=== PATIENT | male | born 1995 | race Caucasian/White ===

== ENCOUNTER 2017-03-17 01:21 | Emergency (ER) | payer OTHER ==
[~2017-03-17] VITALS: Ht 167.6 cm; Wt 61.9 kg
[2017-03-17 01:27] VITALS: TEMP 36.7; Ht 167.6 cm; Wt 61.9 kg
[2017-03-17] MEDS ORDERED: SODIUM CHLORIDE 0.9% 1000ML 1,000 ML IV STA (01:42)
--- NOTE | 2017-03-17 01:50 | EMERGENCY ROOM VISIT NOTE ---
History Report prepared by Emilyiblayla: Aury Ortega Under the Supervision of: Declan BermudezO. First contact with patient: 01:28 Chief Complaint: IRREGULAR HEARTBEAT Stated Complaint: IRREGULAR HEART RATE History of Present Illness The patient is a 21 year old male who presents to the Emergency Room with complaints of constant heart palpitations begging a couple hours ago. The patient was at a concert a couple hours ago. The patient states he felt fine before and and during the concert. He reports he smoked "weed" after the concert. After smoking the marijuana he started to feel shaky, chilled, and have the heart palpitations. He states he smoked the same marijuana earlier in the day and had no problems. He states he smoked more "weed" after the concert than he did earlier in the day. He denies any alcohol use or other recreational drug use. The patient reports some nausea. The patient states he had a cold last week which he thought resolved. He denies any recent trauma or injury. The patient states he thought he might of been having a panic attack because he never has had symptoms like this before. Pt denies headache, change in vision, fevers, chest pain, shortness of breath, nausea, vomiting, diarrhea, pain with urination, and melena. Source of History: patient Onset: a couple hours ago Position: other (heart) Quality: other (palpitiations) Timing: constant Associated Symptoms: + chills, No headache, No chest pain, No SOB, No nausea , No vomiting, No abdominal pain, No diarrhea Review of Systems See HPI for pertinent positives & negatives. A total of 10 systems reviewed and were otherwise negative. Past Medical & Surgical Medical Problems: (1) No Known Active Medical Problems Family History Patient reports no known family medical history. Social History Smoking Status: Never Smoker Alcohol Use: none Drug Use: marijuana Marital Status: single Occupation Status: student Current/Historical Medications No Active Prescriptions or Reported Meds Allergies Coded Allergies: No Known Allergies (Unverified , 03/17/17) Physical Exam Vital Signs Date Time Temp Pulse Resp B/P (MAP) Pulse Ox O2 Delivery O2 Flow Rate FiO2 03/17/17 03:36 93 16 122/63 99 03/17/17 03:03 91 16 125/55 96 Room Air 03/17/17 01:35 144 03/17/17 01:27 36.7 131 16 169/98 99 Room Air Physical Exam GENERAL: alert, slightly anxious appearing, well nourished, no distress, non- toxic EYE EXAM: normal conjunctiva, PERRL and EOM's grossly intact OROPHARYNX: no exudate, no erythema, lips, buccal mucosa, and tongue normal and mucous membranes are dry NECK: supple, no nuchal rigidity, no adenopathy, non-tender LUNGS: Clear to auscultation. Normal chest wall mechanics HEART: Tachycardic and regular no murmurs, S1 normal and S2 normal ABDOMEN: abdomen soft, non-tender, normo-active bowel sounds, no masses, no rebound or guarding. BACK: Back is symmetrical on inspection and there is no deformity, no midline tenderness, no CVA tenderness. SKIN: no rashes and no bruising UPPER EXTREMITIES: upper extremities are grossly normal. LOWER EXTREMITIES: No pitting edema. NEURO EXAM: Normal sensorium, cranial nerves II-XII grossly intact, normal speech, no gross weakness of arms, no gross weakness of legs. Medical Decision & Procedures ER Provider Diagnostic Interpretation: Radiology results have been interpreted by me. Chest X-ray: no cardiomegaly no effusion, no wide mediastinum, no focal infiltrate, no pneumothorax. Laboratory Results 03/17/17 01:35 Red Blood Count 4.94, Mean Corpuscular Volume 89.3, Mean Corpuscular Hemoglobin 31.8, Mean Corpuscular Hemoglobin Concent 35.6, Mean Platelet Volume 12.9, Neutrophils (%) (Auto) 43.9, Lymphocytes (%) (Auto) 48.4, Monocytes (%) (Auto) 5.6, Eosinophils (%) (Auto) 1.6, Basophils (%) (Auto) 0.4, Neutrophils # (Auto) 4.41, Lymphocytes # (Auto) 4.86, Monocytes # (Auto) 0.56, Eosinophils # (Auto) 0.16, Basophils # (Auto) 0.04 03/17/17 01:35 Test 03/17/17 01:35 03/17/17 03:30 White Blood Count 10.04 K/uL (4.8-10.8) Red Blood Count 4.94 M/uL (4.7-6.1) Hemoglobin 15.7 g/dL (14.0-18.0) Hematocrit 44.1 % (42-52) Mean Corpuscular Volume 89.3 fL (80-100) Mean Corpuscular Hemoglobin 31.8 pg (25-34) Mean Corpuscular Hemoglobin Concent 35.6 g/dl (32-36) Platelet Count 177 K/uL (130-400) Mean Platelet Volume 12.9 fL (7.4-10.4) Neutrophils (%) (Auto) 43.9 % Lymphocytes (%) (Auto) 48.4 % Monocytes (%) (Auto) 5.6 % Eosinophils (%) (Auto) 1.6 % Basophils (%) (Auto) 0.4 % Neutrophils # (Auto) 4.41 K/uL (1.4-6.5) Lymphocytes # (Auto) 4.86 K/uL (1.2-3.4) Monocytes # (Auto) 0.56 K/uL (0.11-0.59) Eosinophils # (Auto) 0.16 K/uL (0-0.5) Basophils # (Auto) 0.04 K/uL (0-0.2) RDW Standard Deviation 41.1 fL (36.4-46.3) RDW Coefficient of Variation 12.8 % (11.5-14.5) Immature Granulocyte % (Auto) 0.1 % Immature Granulocyte # (Auto) 0.01 K/uL (0.00-0.02) Anion Gap 13.0 mmol/L (3-11) Est Creatinine Clear Calc Drug Dose 94.6 ml/min Estimated GFR () 112.2 Estimated GFR (Non- 96.8 BUN/Creatinine Ratio 13.8 (10-20) Calcium Level 9.2 mg/dl (8.5-10.1) Magnesium Level 1.9 mg/dl (1.8-2.4) Total Bilirubin 1.4 mg/dl (0.2-1) Aspartate Amino Transf (AST/SGOT) 21 U/L (15-37) Alanine Aminotransferase (ALT/SGPT) 33 U/L (12-78) Alkaline Phosphatase 31 U/L (45-117) Troponin I < 0.015 ng/ml (0-0.045) Total Protein 8.3 gm/dl (6.4-8.2) Albumin 4.5 gm/dl (3.4-5.0) Globulin 3.8 gm/dl (2.5-4.0) Albumin/Globulin Ratio 1.2 (0.9-2) Thyroid Stimulating Hormone (TSH) 1.970 uIu/ml (0.300-4.500) Urine Opiates Screen NEG (NEG) Urine Methadone, Qualitative NEG (NEG) Urine Barbiturates NEG (NEG) Urine Phencyclidine (PCP) Level NEG (NEG) Ur Amphetamine/Methamphetamine NEG (NEG) MDMA (Ecstasy) Screen NEG (NEG) Urine Benzodiazepines Screen NEG (NEG) Urine Cocaine Metabolite NEG (NEG) Urine Marijuana (THC) POS (NEG) Laboratory results per my review. Medications Administered Medications (Trade) Dose Ordered Sig/Godwin Route Start Time Stop Time Status Last Admin Dose Admin Sodium Chloride 1,000 ml @ 999 mls/hr Q1H1M STAT IV 03/17/17 01:42 03/17/17 02:42 DC 03/17/17 01:42 999 MLS/HR Potassium Chloride (Klor-Con M10) 40 meq NOW STAT PO 03/17/17 02:36 03/17/17 02:37 DC 03/17/17 03:16 40 MEQ ECG Indication: palpitations Rate (beats per minute): 136 Rhythm: sinus tachycardia Findings: no acute ischemic change, other (normal axis, normal intervals ) Comparison ECG Date: EKG interpreted by me ED Course 0134: The patient was evaluated in room B9. A complete history and physical exam was performed. 0142: Ordered Sodium Chloride 1000 ml @ 999 mls/hr IV. 0236: Ordered Potassium Chloride 40 meq PO. 0327: The patient is feeling better. 0332: Upon reevaluation, the patient is feeling better. I discussed the findings and the treatment plan with the patient. The patient verbalizes agreement and understanding. He was discharged home. Medical Decision Differential diagnosis: Etiologies such as premature contractions, electrolyte abnormality, cardiac dysrhythmia, thyroid dysfunction, pulmonary embolism, infection, gastrointestinal, as well as others were entertained. Patient improved here with IV fluids. I feel component of patient's palpitations and tachycardia was likely dehydration. I also discussed with him his use of marijuana today. No evidence of thyroid storm. Doubt ACS, PE, occult infectious etiology, tamponade, no evidence of infiltrate or effusion on chest x-ray, doubt dissection or occult GI bleed him a doubt perforation. Patient able to ambulate to the bathroom with a steady gait and tolerating by mouth at bedside, was well-appearing at time of discharge. Discussed with him avoidance of recreational drugs, adequate hydration, symptoms to watch and return for, he verbalized understanding was agreeable with plan. Medication Reconcilliation Current Medication List: was personally reviewed by me Blood Pressure Screening Patient's blood pressure: Elevated blood pressure Blood pressure disposition: Elevated BP felt to be situational Impression Primary Impression: Palpitations Additional Impressions: Dehydration Marijuana use Hypokalemia Scribe Attestation The scribe's documentation has been prepared under my direction and personally reviewed by me in its entirety. I confirm that the note above accurately reflects all work, treatment, procedures, and medical decision making performed by me. Departure Information Dispostion Home / Self-Care Prescriptions No Active Prescriptions or Reported Meds Referrals No Doctor, Assigned (PCP) Forms HOME CARE DOCUMENTATION FORM, IMPORTANT VISIT INFORMATION Patient Instructions My [facility] [employer] Additional Instructions Please drink plenty of clear liquids, especially water to stay well-hydrated. Please avoid recreational drug use. If you have any recurrent episodes of pounding or racing heart, develop chest pain or pressure, trouble breathing, dizziness, vomiting, fevers, you have any other new concerns, please return the emergency room. Problem Qualifiers
[2017-03-17 01:54] LABS: BASO % 0.4 %; BASO ABS # 0.04 K/uL (0-0.2); EOS % 1.6 %; EOS ABS # 0.16 K/uL (0-0.5); HEMATOCRIT 44.1 % (42-52); HEMOGLOBIN 15.7 g/dL (14.0-18.0); IG# 0.01 K/uL (0.00-0.02); LYMPH % 48.4 %; LYMPH ABS # 4.86 K/uL (1.2-3.4); MEAN CELL VOLUME 89.3 fL (80-100); MEAN CORPUSCULAR HEMOGLOBIN 31.8 pg (25-34); MEAN CORPUSCULAR HGB CONC 35.6 g/dl (32-36); MEAN PLATELET VOLUME 12.9 fL (7.4-10.4); MONO % 5.6 %; MONO ABS # 0.56 K/uL (0.11-0.59); NEUT % 43.9 %; NEUT ABS # 4.41 K/uL (1.4-6.5); PLATELET COUNT 177 K/uL (130-400); RED CELL DISTRIBUTION WIDTH CV 12.8 % (11.5-14.5); RED CELL DISTRIBUTION WIDTH SD 41.1 fL (36.4-46.3); WHITE BLOOD COUNT 10.04 K/uL (4.8-10.8)
[2017-03-17 02:08] LABS: ALBUMIN 4.5 gm/dl (3.4-5.0); ALT/SGPT 33 U/L (12-78); AST/SGOT 21 U/L (15-37); BLOOD UREA NITROGEN 15 mg/dl (7-18); CALCIUM 9.2 mg/dl (8.5-10.1); CARBON DIOXIDE 25 mmol/L (21-32); GLUCOSE 136 mg/dl (70-99); POTASSIUM 2.9 mmol/L (3.5-5.1); SODIUM 140 mmol/L (136-145)
[2017-03-17 02:22] LABS: ALKALINE PHOSPHATASE 31 U/L (45-117); TOTAL PROTEIN 8.3 gm/dl (6.4-8.2)
[2017-03-17] MEDS ORDERED: POTASSIUM CHLORIDE 10 MEQ TABCR PO STA (02:36)
[2017-03-17 03:36] VITALS: BP 122/63; PULSE 93; O2SAT 99
--- NOTE | 2017-03-17 06:37 | DIAGNOSTIC IMAGING REPORT ---
CHEST ONE VIEW PORTABLE HISTORY: 21 years-old Male palpitations acute cardiac palpitations COMPARISON: None available TECHNIQUE: Portable AP view of the chest FINDINGS: Cardiomediastinal and hilar silhouettes are within normal limits. There is no pneumothorax, pleural effusion, focal airspace consolidation or overt pulmonary edema. Bones of the chest appear grossly intact. Dextroscoliosis of the thoracolumbar junction. IMPRESSION: No acute process. The above report was generated using voice recognition software. It may contain grammatical, syntax or spelling errors. Electronically signed by: Shahram Fishman M.D. 03/17/2017 6:36 AM Dictated Date/Time: 03/17/2017 6:35 AM
== END 2017-03-17 03:37 | disposition home or self-care (01) ==
LOC: C.EDB 01:23
DX: R00.2 Palpitations (principal); E86.0 Dehydration; F12.90 Cannabis use, unspecified, uncomplicated; E87.6 Hypokalemia